=== PATIENT | female | born 1995 | race African-American/Black ===

== ENCOUNTER 2018-06-19 13:52 | Emergency (ER) | payer SELFPAY ==
--- NOTE | 2018-06-19 14:13 | EDM.PDOC ---
ED HPI GENERAL MEDICAL PROBLEM - General Chief Complaint: General Stated Complaint: VAGINAL BLEEDING Time Seen by Provider: 06/19/18 14:13 Source of Information: Reports: Patient, Significant Other. Denies: Old Records (No [facility] records available) History Limitations: Reports: No Limitations - History of Present Illness INITIAL COMMENTS - FREE TEXT/NARRATIVE: The patient was brought into the emergency room via private automobile by her significant other for evaluation of progressive mild vaginal spotting, which started yesterday morning at about 10:30 AM. She did have some nonspecific pelvic cramping a few days ago, which has since resolved. She denies any colic, gross hematuria, or other UTI symptoms. Her LMP was normal on 04/22/18. She is 1 and has not yet had her initial OB visit. No known exposure to STDs, infection, pelvic injury, vigorous intercourse, etc.. No recent history of abdominal pain, heartburn, diarrhea, melena, gross hematochezia, or any food intolerance, including fatty foods, etc., although some morning sickness. The patient also denies any recent fever, wheezing, dyspnea, etc. with nonspecific mild nonproductive cough a couple days ago, which has since resolved. Note mild brownish vaginal discharge yesterday with partly-soaked pads 1 earlier today. Spotting had discontinued at time of arrival to our emergency room. Onset: Gradual Onset Date: 06/18/18 Duration: Intermittent Location: Reports: Other (No pain) Worsens with: Reports: None Context: Reports: Other (As above). Denies: Sick Contact, Trauma Associated Symptoms: Reports: Nausea/Vomiting (No emesis). Denies: Confusion, Chest Pain, Cough, Diaphoresis, Fever/Chills, Headaches, Loss of Appetite, Malaise, Rash, Seizure, Shortness of Breath, Syncope, Weakness Treatments INFORMATION SECURITY: Reports: Other (see below) (None) - Related Data Allergies Allergy/AdvReac Type Severity Reaction Status Date / Time aspirin Allergy Rash Verified 06/19/18 14:01 shellfish derived Allergy Facial Verified 06/19/18 14:01 Swelling Home Meds: Home Meds . 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 Denies: Dysfunctional Uterine Bleeding, Endometriosis, Fibroids, Spontaneous , Therapeutic : 1 LMP (Approximate): (With LMP of 04/22/18.) Hematologic History: Reports: Sickle Cell Anemia, Other (See Below) Other Hematologic History: Sickle cell trait Social & Family History - Tobacco Use Smoking Status *Q: Never Smoker Used Tobacco, but Quit: No Smoking Cessation Information Provided To Patient: No Second Hand Smoke Exposure: Yes Source of Second Hand Smoke Exposure: Significant other smokes Second Hand Smoke Education Provided: Yes - Living Situation & Occupation Living situation: Reports: Single, with Significant Other Occupation: Employed ([employer] in local [employer]) ED ROS GENERAL - Review of Systems Review Of Systems: ROS reveals no pertinent complaints other than HPI. ED EXAM, GENERAL - Physical Exam Exam: See Below Exam Limited By: No Limitations General Appearance: Alert, WD/WN, No Apparent Distress Head: Atraumatic, Normocephalic Neck: Normal Inspection, Supple, Non-Tender, Full Range of Motion. No: Lymphadenopathy (L), Lymphadenopathy (R), Thyromegaly Respiratory/Chest: No Respiratory Distress, Lungs Clear, Normal Breath Sounds, No Accessory Muscle Use, Chest Non-Tender Cardiovascular: Normal Peripheral Pulses, Regular Rate, Rhythm, No Edema, No Gallop, No JVD, No Murmur, No Rub. No: Gallop/S3, Gallop/S4, Irregularly Irregular Peripheral Pulses: 2+: Radial (L), Radial (R), Dorsalis Pedis (L), Dorsalis Pedis (R) GI/Abdominal: Normal Bowel Sounds, Soft, Non-Tender, No Organomegaly, No Distention, No Abnormal Bruit, No Mass, Pelvis Stable. No: Guarding (Female) Exam: Enlarged Uterus (56 weeks by pelvic exam), Uterine Tenderness (Borderline/questionable), Vaginal Bleeding (Minimal spotting). No: Adnexal Mass, Adnexal Tenderness, Cervical Dilatation (nulliparous cervix), Cervical Discharge, Cervical Fluid, Cervical Lesions, Cervix Motion Tenderness, Vaginal Discharge, Vaginal Lesions, Vaginal Tears Rectal (Female) Exam: Normal Exam, Normal Rectal Tone. No: Black Stool, Bloody Stool, Fecal Impaction, Tenderness Back Exam: Normal Inspection, Full Range of Motion. No: CVA Tenderness (L), CVA Tenderness (R), Muscle Spasm Extremities: Normal Inspection, Normal Range of Motion, Non-Tender, No Pedal Edema, Normal Capillary Refill. No: Enrique's Sign Neurological: Alert, Oriented, CN II-XII Intact, Normal Cognition, Normal Gait, Normal Reflexes (Negative Babinski's), No Motor/Sensory Deficits Psychiatric: Normal Affect, Normal Mood Skin Exam: Warm, Dry, Intact, Normal Color, No Rash. No: Diaphoretic, Ecchymosis, Jaundice, Pallor, Petechiae, Wound/Incision Lymphatic: No Adenopathy Course - Vital Signs Last Recorded V/S: Last Vital Signs Temp 37.1 C 06/19/18 13:54 Pulse 65 06/19/18 13:54 Resp 16 06/19/18 13:54 BP 119/69 06/19/18 13:54 Pulse Ox 100 06/19/18 13:54 Vital Signs - 24 hr 06/19/18 13:54 Temperature [ 37.1 C Oral] Pulse, 65 Peripheral [ Pulse Oximetry] Respiratory 16 Rate Blood Pressure 119/69 [Left Upper Arm ] O2 Sat by Pulse 100 Oximetry - Orders/Labs/Meds Orders: Active Orders 24 hr Category Date Time Status CHLAMYDIA AND GONORRHEA BY TMA Routine Lab 06/19/18 15:00 Received GC CULTURE [MREF] Stat Lab 06/19/18 14:19 Ordered GENITAL CULTURE [MREF] Stat Lab 06/19/18 15:00 Received Obtain Past Medical Record [OM.PC] Routine Oth 06/19/18 14:13 Active Labs: Laboratory Tests 06/19/18 06/19/18 Range/Units 15:15 15:15 TSH, Ultra Sensitive 2.234 (0.358-3.740) mIU/mL HCG, Quant [id number] mIU/mL Blood Type O POSITIVE Departure - Departure Time of Disposition: 17:08 Disposition: Home, Self-Care 01 Condition: Good Clinical Impression: Vaginal bleeding, Intrauterine , Tobacco abuse counseling - Discharge Information *PRESCRIPTION DRUG MONITORING PROGRAM REVIEWED*: Not Applicable *COPY OF PRESCRIPTION DRUG MONITORING REPORT IN PATIENT ELY: Not Applicable Instructions: Health Risks of Smoking, First Trimester of , Easy-to- Read, Vaginal Bleeding During , First Trimester, [id number] Referrals: Katie Bennett, WORKING MANAGER [Primary Care Provider] - Forms: ED Department Discharge, ED Return to Work/School Form Additional Instructions: 1. Follow-up in this facility tomorrow for recommended initial OB ultrasound with final results to be discussed with your regular provider on 06/21. You should hear from this hospital tomorrow morning for specific instructions, time , etc. 2. Strict pelvic rest as discussed 3. Strict activity as discussed until otherwise released by your regular provider 4. Work excuse- See Form 5. Follow-up with your regular provider, MIGUEL ÁNGEL Gray at the [facility], on 06/21 for reevaluation and recommended repeat quantitative beta -hCG 6. Stop all tobacco exposure SALIMA as directed with counselling, information, etc. given 7. Collect fiberous specimen from your vagina, if present, and bring this to the hospital for further evaluation as discussed. 8. Immediately after this visit verify that your cellular telephone's voicemail has been activated and is empty. Also verify that your home telephone 's answering machine is operating properly and has space to receive messages. Note that it is sometimes necessary for us to be able to contact you at a later date to discuss your medical care. 9. Obtain prescription for vitamins at follow-up visit in 2 days as above 10. Arrange initial visit at the above follow-up, if miscarriage is not occurring - Problem List & Annotations (1) Vaginal bleeding SNOMED Code(s): 983521079, 297189279 Code(s): N93.9 - ABNORMAL UTERINE AND VAGINAL BLEEDING, UNSPECIFIED Status : Acute Priority: High Current Visit: Yes Onset Date: 06/18/18 Annotation/Comment:: Probable implantation spotting rather than true SAB. Close follow-up by regular provider as per discharge instructions with activity restrictions, pelvic rest, etc. extensively discussed. Work excuse provided. Note fairly early intrauterine with patient to schedule an initial OB visit and initiate vitamins SALIMA as discussed. Initial OB ultrasound in this facility tomorrow. Patient is O+ with no need a program. Note normal TSH. (2) Intrauterine SNOMED Code(s): 92956531 Code(s): Z34.90 - ENCNTR FOR SUPRVSN OF NORMAL , UNSP, UNSP TRIMESTER Status: Acute Priority: High Current Visit: Yes Annotation/ Comment:: As above (3) Tobacco abuse counseling SNOMED Code(s): 544946646, 955551849, 026063673 Code(s): Z71.6 - TOBACCO ABUSE COUNSELING Status: Chronic Priority: Medium Current Visit: Yes Annotation/Comment:: Patient and significant other were counseled extensively on the risks of tobacco smoke exposure, etc. Tobacco cessation strongly encouraged with tobacco cessation information provided. - Problem List Review Problem List Initiated/Reviewed/Updated: Yes - My Orders Last 24 Hours: My Active Orders 06/19/18 14:13 Obtain Past Medical Record [OM.PC] Routine 06/19/18 14:19 GC CULTURE [MREF] Stat 06/19/18 15:00 CHLAMYDIA AND GONORRHEA BY TMA Routine GENITAL CULTURE [MREF] Stat - Assessment/Plan Last 24 Hours: My Active Orders 06/19/18 14:13 Obtain Past Medical Record [OM.PC] Routine 06/19/18 14:19 GC CULTURE [MREF] Stat 06/19/18 15:00 CHLAMYDIA AND GONORRHEA BY TMA Routine GENITAL CULTURE [MREF] Stat Assessment:: As above Plan: As above. Extensive precautions were given to the patient and her significant other, who are in agreement with the treatment plan. See Patient Instructions for further treatment and plan.
== END 2018-06-19 17:08 | disposition home or self-care (01) ==
LOC: LL.ED 13:52
DX: O20.9 Hemorrhage in early pregnancy, unspecified (principal); Z88.8 Allergy status to other drugs, medicaments and biological substances; Z91.013 Allergy to seafood; Z71.6 Tobacco abuse counseling; Z77.22 Contact with and (suspected) exposure to environmental tobacco smoke (acute) (chronic)
CPT/HCPCS: 36415; 84443; 84702; 86900; 86901; 87070; 87205; 87491; 87591; 99283; 99284